=== PATIENT | female | born 1970 | race Hispanic/Latino ===

== ENCOUNTER 2018-04-25 18:38 | Emergency (ER) | payer BC ==
--- NOTE | 2018-04-25 19:46 | C.PDOC ---
History Of Present Illness 47 yo female come in for evaluation of Right ankle and foot swelling gradually developed early today. Pt reports, mild pain over lateral aspect right foot. Admits, swelling slightly improved for past few hours. Otherwise, denies known trauma or injury, fever, chills, CP, SOB, dyspnea, palpitation, denies weakness , sensory or vascular deficits to Right foot, denies skin changes. Ambulate to Ed for evaluation, not in any apparent distress. Time Seen by Provider: 04/25/18 18:45 Chief Complaint (Nursing): Lower Extremity Problem/Injury History Per: Patient Past Medical History Reviewed: Historical Data, Nursing Documentation, Vital Signs Vital Signs: Last Vital Signs Temp 98.5 F 04/25/18 20:06 Pulse 69 04/25/18 20:06 Resp 16 04/25/18 20:06 BP 114/78 04/25/18 20:06 Pulse Ox 98 04/25/18 20:06 - Medical History PMH: Hypothyroidism Denies: CAD, CHF, COPD Family History: States: No Known Family Hx - Social History Hx Alcohol Use: Yes Hx Substance Use: No - Immunization History Hx Tetanus Toxoid Vaccination: No Hx Influenza Vaccination: No Review Of Systems Except As Marked, All Systems Reviewed And Found Negative. Constitutional: Negative for: Fever, Chills Eyes: Negative for: Vision Change Cardiovascular: Negative for: Chest Pain, Palpitations, Edema, Light Headedness Respiratory: Negative for: Cough, Shortness of Breath Musculoskeletal: Positive for: Foot Pain (swelling) Skin: Negative for: Rash, Bruising Neurological: Negative for: Weakness, Numbness Physical Exam - Physical Exam Appears: Well, Non-toxic, No Acute Distress Skin: Normal Color, Warm, No Ecchymosis Head: Normacephalic Eye(s): bilateral: PERRL Oral Mucosa: Moist Neck: Trachea Midline, Supple Cardiovascular: Rhythm Regular, No Murmur, No JVD Respiratory: No Decreased Breath Sounds, No Accessory Muscle Use, No Stridor, No Wheezing Extremity: Normal ROM (Right foot), Tenderness (mild over lateral aspect Right foot), No Pedal Edema, No Calf Tenderness, Capillary Refill (less than 2sec to Right foot), No Deformity, Swelling (mild diffuse edema to Right foot dorsal aspect extend to lateral aspect of Right ankle. non-pitting) Neurological/Psych: Oriented x3, Normal Speech, Normal Motor, Normal Sensation, Normal Reflexes ED Course And Treatment O2 Sat by Pulse Oximetry: 97 Pulse Ox Interpretation: Normal - Other Rad Right foot X-Ray: Interpreted by Me, Viewed By Me Interpretation: (-) acute fx or dislocation Progress Note: On re-evlauation, pt is afebrile, hemodynamicaly stable. AMbulatory in ED with stable gait, non-toxic. PulseOx 97% RA. Neck: Supple, (- ) JVD. Lungs: CTA B/L, BS equal B/L. CVS: (+)S1S2, reg, (-) murmur. Right ankle/foot: mild non-pitting edema. No skin changes. FAROM, no neurovascular deficits. Imaging review- no acute findings. Pt has clinical findings c/w Right foot edema, nos. Parent advised and ref. to f/u with PMD, Stuffer in 2-3 days for re-eavl. return if any new changes. Disposition Counseled Patient/Family Regarding: Studies Performed, Diagnosis, Need For Followup - Disposition Referrals: [facility] [Outside] Disposition: HOME/ ROUTINE Disposition Time: 19:50 Condition: STABLE Additional Instructions: Keep foot elevated Avoid tight shoe Follow up with PMD, Podiatry in 2-3 days for re-evaluation. return if any new changes. Instructions: Dependent Edema (DC) Forms: [facility] [facility] (Peruvian) - Clinical Impression Clinical Impression: Edema of foot
[2018-04-25 20:08] VITALS: BP 114/78; PULSE 69; RESP 16; TEMP 98.5
[2018-04-25 22:11] VITALS: O2SAT 97
--- NOTE | 2018-04-26 09:00 | RAD ---
PROCEDURE: Right Foot Radiographs. HISTORY: Pain and swelling COMPARISON: 02/22/2016. FINDINGS: BONES: Status post bunionectomy. Bone alignment and mineralization are normal. There are postsurgical changes in the proximal phalanx and head of the 1st metatarsal with screws in place. No hardware complications. JOINTS: The joint spaces are preserved. SOFT TISSUES: There is mild periarticular soft tissue swelling at the 1st MTP joint OTHER FINDINGS: None. IMPRESSION: Postsurgical changes of bunionectomy, mild periarticular soft tissue swelling at the 1st MTP joint.
== END 2018-04-25 20:08 | disposition home or self-care (01) ==
LOC: C.ER 18:38
DX: R60.9 Edema, unspecified (principal)